=== PATIENT | male | born 1955 | race Caucasian/White ===

== ENCOUNTER 2016-05-16 08:30 | Inpatient (IN) | payer BC ==
[~2016-05-16] VITALS: Ht 180.3 cm; Wt 83.7 kg
[2016-05-16] VITALS (9 sets, daily range): BP systolic 104–138; BP diastolic 76–94; PULSE 54–93; TEMP 97.7–98.4
[~2016-05-16 08:30] MED LIST: ALEVE 220MG220 MG PO; ATIVAN 0.50.5 MG/TAB PO; CARDIZEM CD 18180 MG PO; COUMADIN 2MG2 MG/TAB PO; LIPITOR20 MG PO; MAGNESIUM CHELA27 MG PO; MAGNESIUM200 MG PO; NAPROSYN 2250 MG/TAB PO; NAPROSYN500 MG PO; NORCO 325 MG-51 TAB PO; OMEGA-31 SGL PO; PROTONIX 40MG T40 MG PO; SELENIUM PO; SELENIUM2 PO; TOPROL XL 25MG25 MG PO; TYLENOL 325MG325 MG PO; ZANTAC 7575 MG PO; ZESTRIL 20MG TA20 MG PO; ZESTRIL2.5 MG PO; ZOFRAN ODT4 MG PO
[2016-05-16 09:14] LABS: HEMATOCRIT 47.6 % (42.0-52.0); HEMOGLOBIN 15.7 g/dl (13.5-18.0); MEAN CELL VOLUME 90 fl (80.0-100.0); MEAN CORPUSCULAR HEMOGLOBIN 30 pg (27.0-31.0); MEAN CORPUSCULAR HGB CONC 33 g/dl (33.0-37.0); MEAN PLATELET VOLUME 10.5 fl (7.4-10.4); PLATELET COUNT 249 K/mm3 (130-400); RED BLOOD COUNT 5.28 M/mm3 (4.20-5.60); REDCELL DISTRIBUTION WIDTH-CV 14.5 % (11.5-14.5); WHITE BLOOD COUNT 5.3 K/mm3 (4.8-10.8)
[2016-05-16] MEDS ORDERED: COUMADIN 2MG2 MG/TAB PO (09:17)
[2016-05-16] MEDS ORDERED: ZANTAC 7575 MG PO (09:18)
[2016-05-16] MEDS ORDERED: ASPIRIN 81M81 MG/TA2 PO (09:20)
[2016-05-16] MEDS ORDERED: NASAL CROM NAS (09:22)
[2016-05-16] MEDS ORDERED: FINACEA15% TP (09:23)
[2016-05-16] MEDS ORDERED: ULTRAVATE CREAM15 GM TP (09:23)
[2016-05-16 09:24] LABS: INR 2.3 (0.8-3.0); PROTHROMBIN TIME 26.3 SECONDS (9.7-12.8)
[2016-05-16 09:28] LABS: CREATININE, serum 1.03 mg/dL (0.66-1.25); POTASSIUM 4.3 mmol/L (3.4-5.0)
[2016-05-17 03:50] VITALS: BP 123/64; PULSE 55; TEMP 97.8
[2016-05-17 06:59] LABS: HEMATOCRIT 43.9 % (42.0-52.0); HEMOGLOBIN 14.7 g/dl (13.5-18.0); MEAN CELL VOLUME 89 fl (80.0-100.0); MEAN CORPUSCULAR HEMOGLOBIN 30 pg (27.0-31.0); MEAN CORPUSCULAR HGB CONC 34 g/dl (33.0-37.0); MEAN PLATELET VOLUME 10.9 fl (7.4-10.4); PLATELET COUNT 213 K/mm3 (130-400); RED BLOOD COUNT 4.92 M/mm3 (4.20-5.60); REDCELL DISTRIBUTION WIDTH-CV 14.4 % (11.5-14.5); WHITE BLOOD COUNT 5.7 K/mm3 (4.8-10.8)
[2016-05-17 07:19] LABS: INR 2.3 (0.8-3.0); PROTHROMBIN TIME 25.9 SECONDS (9.7-12.8)
[2016-05-17 07:22] LABS: CALCIUM 9.7 mg/dL (8.4-10.2); CREATININE, serum 0.96 mg/dL (0.66-1.25); MAGNESIUM 1.9 mg/dL (1.6-2.3); POTASSIUM 4.2 mmol/L (3.4-5.0)
[2016-05-17 08:23] VITALS: BP 113/74; PULSE 56; TEMP 97.7
[2016-05-17 17:06] VITALS: BP 144/88; PULSE 59; TEMP 97.9
[2016-05-17 19:32] VITALS: BP 127/83; PULSE 59; TEMP 98.1
[2016-05-17 23:46] VITALS: BP 150/89; PULSE 65; TEMP 97.6
[2016-05-18 08:02] VITALS: BP 125/84; PULSE 56; TEMP 98.1
[2016-05-18 08:10] LABS: HEMATOCRIT 44.6 % (42.0-52.0); MEAN CELL VOLUME 90 fl (80.0-100.0); MEAN CORPUSCULAR HEMOGLOBIN 30 pg (27.0-31.0); MEAN CORPUSCULAR HGB CONC 34 g/dl (33.0-37.0); MEAN PLATELET VOLUME 11.1 fl (7.4-10.4); PLATELET COUNT 215 K/mm3 (130-400); RED BLOOD COUNT 4.98 M/mm3 (4.20-5.60); REDCELL DISTRIBUTION WIDTH-CV 14.2 % (11.5-14.5); WHITE BLOOD COUNT 6.1 K/mm3 (4.8-10.8)
[2016-05-18 08:11] LABS: INR 1.9 (0.8-3.0); PROTHROMBIN TIME 21.1 SECONDS (9.7-12.8)
[2016-05-18 08:21] LABS: CALCIUM 9.7 mg/dL (8.4-10.2); CREATININE, serum 1.01 mg/dL (0.66-1.25); POTASSIUM 4.2 mmol/L (3.4-5.0)
[2016-05-18] MEDS ORDERED: ZESTRIL 10MG10 MG PO (11:16)
[2016-05-18] MEDS ORDERED: COUMADIN 6MG6 MG/TAB PO (11:21)
[2016-05-18] MEDS ORDERED: BETAPACE 80MG80 MG PO (11:32)
== END 2016-05-18 11:55 | disposition home or self-care (01) | DRG 310 ==
LOC: EUO 08:30 → MEDICAL 11:13 → EUO 11:14 → MEDICAL 11:14
PROVIDERS: Internal Medicine Cardiovascular Disease
PROC: 5A2204Z Restoration of Cardiac Rhythm, Single (ICD-10-PCS; principal; 2016-05-16)
DX: I48.0 Paroxysmal atrial fibrillation (principal); I10 Essential (primary) hypertension; I42.9 Cardiomyopathy, unspecified; Z86.73 Personal history of transient ischemic attack (TIA), and cerebral infarction without residual deficits
CPT/HCPCS: J2704

== ENCOUNTER → 2016-06-29 | Outpatient (RCR) | payer BC ==
[~2016-06-29] MED LIST changes: +ASPIRIN 81M81 MG/TA2 PO; +BETAPACE 80MG80 MG PO; +COUMADIN 6MG6 MG/TAB PO; +FINACEA15% TP; +NASAL CROM NAS; +ULTRAVATE CREAM15 GM TP; +ZESTRIL 10MG10 MG PO
== END | disposition still patient (30) ==
LOC: MKS.ESL.OT → WSST 04-05 14:15 → MKS.ESL.PT 04-06 09:00 → WSST 04-07 13:45 → MKS.ESL.OT 04-08 14:30 → WSST 04-12 13:30 → MKS.ESL.OT 04-22 13:45 → WSST 04-25 14:15 → MKS.ESL.OT 04-26 13:00 → WSST 04-28 12:30 → MKS.ESL.OT 05-05 13:45 → WSST 05-10 12:30 → MKS.ESL.OT 05-11 13:15 → WSST 05-12 12:30 → MKS.ESL.OT 05-20 14:00 → WSST 05-24 13:45 → MKS.ESL.OT 06-01 13:00 → WSST 06-02 12:45 → MKS.ESL.OT 06-15 13:00
DX: R53.1 Weakness (principal)

== ENCOUNTER → 2016-09-28 | Outpatient (RCR) | payer BC | END | disposition still patient (30) | LOC: MKS.ESL.PT → MKS.ESL.OT 06-30 12:47 → WSST 07-13 13:00 → MKS.ESL.OT 07-14 13:00 → WSST 07-27 13:00 → MKS.ESL.OT 08-02 13:00 → WSST 08-03 13:00 → MKS.ESL.OT 08-09 13:00 → WSST 08-11 13:00 → MKS.ESL.PT 08-23 12:30 → MKS.ESL.OT 08-24 13:00 → MKS.ESL.PT 08-25 13:15 → MKS.ESL.OT 08-31 13:00 → WSST 09-01 14:30 → MKS.ESL.OT 09-07 13:15 → MKS.ESL.PT 09-13 12:30 → WSST 09-19 14:15 → MKS.ESL.PT 09-20 12:30 → MKS.ESL.OT 13:00 | DX: I63.8 Other cerebral infarction (principal) ==

== ENCOUNTER 2016-12-28 12:30 | Outpatient (RCR) | payer BC | END 2017-01-01 | disposition home or self-care (01) | LOC: WSST | DX: I69.351 Hemiplegia and hemiparesis following cerebral infarction affecting right dominant side (principal) ==

== ENCOUNTER 2017-03-29 07:36 | Day surgery (SDC) | payer BC ==
[~2017-03-29] VITALS: Ht 180.3 cm; Wt 80.9 kg
[2017-03-29 08:05] VITALS: BP 153/91; PULSE 59; TEMP 97.4
[2017-03-29] MEDS ORDERED: COUMADIN 2MG2 MG/TAB PO (08:29)
[2017-03-29] MEDS ORDERED: ATIVAN 0.50.5 MG/TAB PO (08:34)
[2017-03-29] MEDS ORDERED: REVATIO20 MG PO (08:35)
[2017-03-29] MEDS ORDERED: LIPITOR 40MG TA40 MG PO (08:35)
[2017-03-29] MEDS ORDERED: CELEBREX 200MG200 MG PO (08:36)
[2017-03-29] MEDS ORDERED: CROMOLYN SODIUM NS (08:38)
[2017-03-29] MEDS ORDERED: NORCO 325 MG-51 TAB PO (08:39)
[2017-03-29 11:30] VITALS: BP 143/83; PULSE 58; TEMP 97.6
[2017-03-29 11:45] VITALS: BP 164/86; PULSE 60
[2017-03-29 12:00] VITALS: BP 141/72; PULSE 57
[2017-03-29 12:15] VITALS: BP 134/80; PULSE 60
[2017-03-29 12:58] VITALS: BP 141/85; PULSE 56; TEMP 97.6
== END 2017-03-29 13:18 | disposition home or self-care (01) ==
LOC: SDCO 07:36
DX: S80.12XA Contusion of left lower leg, initial encounter (principal); T79.8XXA Other early complications of trauma, initial encounter; I96 Gangrene, not elsewhere classified; E78.00 Pure hypercholesterolemia, unspecified; G47.30 Sleep apnea, unspecified; I48.91 Unspecified atrial fibrillation; I11.0 Hypertensive heart disease with heart failure; I50.9 Heart failure, unspecified; I65.29 Occlusion and stenosis of unspecified carotid artery; I25.10 Atherosclerotic heart disease of native coronary artery without angina pectoris; Z87.891 Personal history of nicotine dependence; R12 Heartburn; Z79.01 Long term (current) use of anticoagulants; I69.931 Monoplegia of upper limb following unspecified cerebrovascular disease affecting right dominant side; I69.920 Aphasia following unspecified cerebrovascular disease; W19.XXXA Unspecified fall, initial encounter
CPT/HCPCS: J0690; J1100; J2270; J2405; J2704; J3010; J7120

== ENCOUNTER 2017-03-30 14:00 | Outpatient (RCR) | payer BC ==
[~2017-03-30 14:00] MED LIST changes: +CELEBREX 200MG200 MG PO; +CROMOLYN SODIUM NS; +LIPITOR 40MG TA40 MG PO; +REVATIO20 MG PO
== END 2017-04-03 | disposition still patient (30) ==
LOC: MKS.ESL.OT
DX: I69.351 Hemiplegia and hemiparesis following cerebral infarction affecting right dominant side (principal)

== ENCOUNTER → 2017-04-07 | Outpatient (CLI) | payer BC | LOC: ZCOL.LAB 17:29 | DX: S81.802A Unspecified open wound, left lower leg, initial encounter (principal) ==

== ENCOUNTER 2017-06-27 13:00 | Outpatient (RCR) | payer BC | END 2017-07-03 | disposition home or self-care (01) | LOC: WSST | DX: I69.320 Aphasia following cerebral infarction (principal); I69.391 Dysphagia following cerebral infarction; R13.10 Dysphagia, unspecified ==

== ENCOUNTER 2017-10-06 13:00 | Outpatient (RCR) | payer BC | END 2017-10-09 | disposition home or self-care (01) | LOC: MKS.ESL.OT | DX: I69.951 Hemiplegia and hemiparesis following unspecified cerebrovascular disease affecting right dominant side (principal) ==

== ENCOUNTER 2017-11-02 13:00 | Outpatient (RCR) | payer BC | END 2017-11-03 16:39 | disposition home or self-care (01) | LOC: MKS.ESL.OT 13:00 | DX: I69.351 Hemiplegia and hemiparesis following cerebral infarction affecting right dominant side (principal) ==

== ENCOUNTER 2018-01-14 12:07 | Emergency (ER) | payer BC ==
[~2018-01-14] VITALS: Ht 180.3 cm; Wt 82.7 kg
[2018-01-14 12:14] VITALS: TEMP 98.5
[2018-01-14 12:40] LABS: BASO # 0.1 (0.0-0.2); EOS # 0.4 (0.0-0.7); EOS % 4.1 % (0-4.0); GRAN # 6.2 (1.4-6.5); GRAN % 69.7 % (42.2-75.2); HEMATOCRIT 45.9 % (42.0-52.0); HEMOGLOBIN 15.5 g/dl (13.5-18.0); LYMPH # 1.6 (1.2-3.4); LYMPH % 18.1 % (20.0-51.0); MEAN CELL VOLUME 94 fl (80.0-100.0); MEAN CORPUSCULAR HEMOGLOBIN 32 pg (27.0-31.0); MEAN CORPUSCULAR HGB CONC 34 g/dl (33.0-37.0); MEAN PLATELET VOLUME 10.4 fl (7.4-10.4); MONO # 0.6 (0.1-0.6); MONO % 6.9 % (1.7-9.3); PLATELET COUNT 235 K/mm3 (130-400); RED BLOOD COUNT 4.87 M/mm3 (4.20-5.60); REDCELL DISTRIBUTION WIDTH-CV 14.1 % (11.5-14.5)
[2018-01-14 12:46] LABS: INR 2.7 (0.8-3.0); PROTHROMBIN TIME 30.3 SECONDS (9.7-12.8)
[2018-01-14 12:48] LABS: PARTIAL THROMBOPLASTIN TIME 47.6 SECONDS (26.0-37.0)
[2018-01-14 12:49] LABS: ALANINE AMINOTRANSFERASE 67 U/L (21-72); ALBUMIN 4.6 gm/dL (3.5-5.0); ALKALINE PHOSPHATASE 76 U/L (50-136); ANION GAP 9 mmol/L (7-16); AST,SGOT 69 U/L (15-37); BILIRUBIN,TOTAL 1.1 mg/dL (0.0-1.0); BLOOD UREA NITROGEN 9 mg/dL (9-20); CALCIUM 9.4 mg/dL (8.4-10.2); CARBON DIOXIDE 29 mmol/L (22-30); CHLORIDE 93 mmol/L (98-107); CREATININE, serum 0.99 mg/dL (0.66-1.25); GLUCOSE 95 mg/dL (74-106); LIPASE 90 U/L (23-300); POTASSIUM 5.1 mmol/L (3.4-5.0); SODIUM 131 mmol/L (137-145); TOTAL PROTEIN 7.9 gm/dL (6.4-8.2)
[2018-01-14] MEDS ORDERED: EPA FISH OIL1 SGL PO (13:00)
[2018-01-14] MEDS ORDERED: PROZAC 10MG10 MG PO (13:01)
[2018-01-14] MEDS ORDERED: ZYRTEC 10MG10 MG PO (13:01)
[2018-01-14] MEDS ORDERED: ATIVAN 0.50.5 MG/TAB PO (13:02)
[2018-01-14] MEDS ORDERED: ULTRAVATE CREAM15 GM TP (13:02)
[2018-01-14] MEDS ORDERED: NIZORAL CREAM15 GM TP (13:03)
[2018-01-14 13:07] LABS: TROPONIN-I < 0.012 ng/mL (0.000-0.034)
[2018-01-14 13:46] VITALS: BP 169/118; PULSE 52
== END 2018-01-14 14:00 | disposition short-term general hospital (02) ==
LOC: COL.ER 12:07
PROVIDERS: Emergency Medicine
DX: I21.3 ST elevation (STEMI) myocardial infarction of unspecified site (principal); I10 Essential (primary) hypertension; I48.91 Unspecified atrial fibrillation; Z86.73 Personal history of transient ischemic attack (TIA), and cerebral infarction without residual deficits; Z79.01 Long term (current) use of anticoagulants; Z79.82 Long term (current) use of aspirin

== ENCOUNTER 2018-03-21 14:36 | Outpatient (RCR) | payer BC ==
[~2018-03-21 14:36] MED LIST changes: +EPA FISH OIL1 SGL PO; +NIZORAL CREAM15 GM TP; +PROZAC 10MG10 MG PO; +ZYRTEC 10MG10 MG PO
== END 2018-03-23 05:44 | disposition home or self-care (01) ==
LOC: COL.CR 14:36
DX: I21.9 Acute myocardial infarction, unspecified (principal)

== ENCOUNTER → 2018-03-27 | Outpatient (RCR) | payer BC | END | disposition home or self-care (01) | LOC: MKS.ESL.OT | DX: I69.351 Hemiplegia and hemiparesis following cerebral infarction affecting right dominant side (principal) ==

== ENCOUNTER 2018-06-18 14:46 | Outpatient (RCR) | payer SELFPAY | END 2018-06-21 | disposition home or self-care (01) | LOC: COL.CR | DX: Z02.89 Encounter for other administrative examinations (principal) ==

== ENCOUNTER 2018-06-19 12:45 | Outpatient (RCR) | payer BC | END 2018-06-27 | disposition home or self-care (01) | LOC: MKS.ESL.OT | DX: I69.351 Hemiplegia and hemiparesis following cerebral infarction affecting right dominant side (principal) ==

== ENCOUNTER 2018-09-07 13:00 | Outpatient (RCR) | payer BC | END 2018-09-12 13:58 | disposition home or self-care (01) | LOC: MKS.ESL.OT 13:00 | DX: I69.351 Hemiplegia and hemiparesis following cerebral infarction affecting right dominant side (principal); E78.5 Hyperlipidemia, unspecified; I48.91 Unspecified atrial fibrillation; F41.9 Anxiety disorder, unspecified ==

== ENCOUNTER 2018-09-26 11:52 | Outpatient (RCR) | payer SELFPAY | END 2018-09-30 | disposition home or self-care (01) | LOC: COL.CR | DX: Z02.89 Encounter for other administrative examinations (principal) ==

== ENCOUNTER 2018-12-28 14:51 | Outpatient (RCR) | payer SELFPAY | END 2019-01-01 | disposition home or self-care (01) | LOC: COL.CR | DX: Z02.89 Encounter for other administrative examinations (principal) ==

== ENCOUNTER 2019-03-29 12:31 | Outpatient (RCR) | payer SELFPAY | END 2019-04-02 | disposition home or self-care (01) | LOC: COL.CR | DX: Z02.89 Encounter for other administrative examinations (principal) ==

== ENCOUNTER 2019-06-17 15:47 | Outpatient (RCR) | payer SELFPAY | END 2019-06-30 | disposition home or self-care (01) | LOC: COL.CR | DX: Z02.89 Encounter for other administrative examinations (principal) ==

== ENCOUNTER 2019-08-09 07:52 | Day surgery (SDC) | payer BC ==
[~2019-08-09] VITALS: Ht 180.3 cm; Wt 84.6 kg
[~2019-08-09 07:52] MED LIST changes: -LIPITOR 40MG TA40 MG PO; +LIPITOR 80MG80 MG PO; -ZESTRIL 10MG10 MG PO; +ZESTRIL 5MG5 MG PO
[2019-08-09] MEDS ORDERED: WELLBUTRIN XL150 MG PO (08:21)
[2019-08-09] MEDS ORDERED: FINACEA15% TP (08:25)
[2019-08-09] MEDS ORDERED: PEPCID 20MG TAB20 MG PO (08:26)
[2019-08-09] MEDS ORDERED: TRICOR 48MG48 MG PO (08:27)
[2019-08-09] MEDS ORDERED: NITROSTAT0.4 MG/TAB SL (08:30)
[2019-08-09 08:41] VITALS: BP 157/141; BP 167/56; PULSE 133; TEMP 97.7
[2019-08-09 09:09] LABS: HEMATOCRIT 48.2 % (42.0-52.0); HEMOGLOBIN 15.7 g/dl (13.5-18.0); MEAN CELL VOLUME 95 fl (80.0-100.0); MEAN CORPUSCULAR HEMOGLOBIN 31 pg (27.0-31.0); MEAN CORPUSCULAR HGB CONC 33 g/dl (33.0-37.0); MEAN PLATELET VOLUME 10.3 fl (7.4-10.4); PLATELET COUNT 240 K/mm3 (130-400); REDCELL DISTRIBUTION WIDTH-CV 14.2 % (11.5-14.5)
[2019-08-09 09:22] LABS: CREATININE, serum 1.17 (0.66-1.25); MAGNESIUM 1.9 mg/dL (1.6-2.3); POTASSIUM 4.5 mmol/L (3.4-5.0)
[2019-08-09 09:51] LABS: INR 2.9 (0.8-3.0); PROTHROMBIN TIME 34.7 SECONDS (9.7-12.8)
[2019-08-09 09:53] LABS: PARTIAL THROMBOPLASTIN TIME 46.7 SECONDS (26.0-37.0); THYROID STIMULATING HORMONE 3.66 uIU/mL (0.465-4.680)
[2019-08-09 10:45] VITALS: BP 103/79; PULSE 50
--- NOTE | 2019-08-09 10:45 | NUR ---
PT back from buster/cardioversion, bs report from Ameena CHOW. Pt is awake and alert, NSR/sinus alyssia on monitor, no complaints wctm.
[2019-08-09 11:00] VITALS: BP 110/76; PULSE 53
[2019-08-09 11:15] VITALS: BP 147/103; PULSE 53
[2019-08-09 11:30] VITALS: BP 124/85; PULSE 53
[2019-08-09 12:19] VITALS: BP 152/95; PULSE 53; TEMP 97.6
--- NOTE | 2019-08-09 12:30 | NUR ---
Pt ready for discharge, he has had repeat EKG, has remained in sinus rhythm. pt has been ambulatory with steady gait and has been able to drink with no trouble swallowing. pt is without complaints, he is dressed and ready to depart. I informed pt's after consulting with Aura CHOW that pt should continue wearing the ekg monitor tech at home as prescribed. IV dc'd with cath intact, dressing applied. pt escorted to exit via wheelchair.
== END 2019-08-09 13:49 | disposition home or self-care (01) ==
LOC: COL.CAR 07:52
PROVIDERS: Internal Medicine Cardiovascular Disease
DX: I48.0 Paroxysmal atrial fibrillation (principal); I11.0 Hypertensive heart disease with heart failure; I50.9 Heart failure, unspecified; E78.5 Hyperlipidemia, unspecified; G47.33 Obstructive sleep apnea (adult) (pediatric); I25.10 Atherosclerotic heart disease of native coronary artery without angina pectoris; I65.29 Occlusion and stenosis of unspecified carotid artery; I07.1 Rheumatic tricuspid insufficiency; I25.2 Old myocardial infarction; K21.9 Gastro-esophageal reflux disease without esophagitis; F41.9 Anxiety disorder, unspecified; Z86.73 Personal history of transient ischemic attack (TIA), and cerebral infarction without residual deficits; Z79.82 Long term (current) use of aspirin; Z79.01 Long term (current) use of anticoagulants
CPT/HCPCS: J2704

== ENCOUNTER 2019-11-15 15:03 | Outpatient (RCR) | payer SELFPAY ==
[~2019-11-15 15:03] MED LIST changes: +NITROSTAT0.4 MG/TAB SL; +PEPCID 20MG TAB20 MG PO; +TRICOR 48MG48 MG PO; +WELLBUTRIN XL150 MG PO
== END 2019-12-12 | disposition home or self-care (01) ==
LOC: COL.CR
DX: Z02.89 Encounter for other administrative examinations (principal)

== ENCOUNTER 2020-03-11 15:15 | Outpatient (RCR) | payer SELFPAY | END 2020-03-15 | disposition home or self-care (01) | LOC: COL.CR | DX: Z02.89 Encounter for other administrative examinations (principal) ==

== ENCOUNTER 2020-06-12 14:48 | Outpatient (RCR) | payer SELFPAY | END 2020-06-14 | disposition home or self-care (01) | LOC: COL.CR | DX: Z02.89 Encounter for other administrative examinations (principal) ==

== ENCOUNTER 2020-09-11 17:05 | Outpatient (RCR) | payer SELFPAY | END 2020-09-13 | disposition home or self-care (01) | LOC: COL.CR | DX: Z02.89 Encounter for other administrative examinations (principal) ==

== ENCOUNTER 2020-10-12 15:47 | Emergency (ER) | payer MEDICARE, BC ==
[~2020-10-12] VITALS: Ht 180.3 cm; Wt 84.1 kg
[2020-10-12 18:15] LABS: BASO # 0.1 (0.0-0.2); BASO % 0.9 % (0.0-2.0); EOS # 0.4 (0.0-0.7); EOS % 3.7 % (0-4.0); GRAN # 5.7 (1.4-6.5); GRAN % 60.4 % (42.2-75.2); HEMATOCRIT 48.7 % (42.0-52.0); HEMOGLOBIN 15.9 g/dl (13.5-18.0); LYMPH # 2.1 (1.2-3.4); LYMPH % 22.3 % (20.0-51.0); MEAN CELL VOLUME 94 fl (80.0-100.0); MEAN CORPUSCULAR HEMOGLOBIN 31 pg (27.0-31.0); MEAN CORPUSCULAR HGB CONC 33 g/dl (33.0-37.0); MEAN PLATELET VOLUME 10.7 fl (7.4-10.4); MONO # 1.2 (0.1-0.6); MONO % 12.3 % (1.7-9.3); PLATELET COUNT 329 K/mm3 (130-400); RED BLOOD COUNT 5.16 M/mm3 (4.20-5.60); REDCELL DISTRIBUTION WIDTH-CV 14.5 % (11.5-14.5)
[2020-10-12 18:26] LABS: INR 1.3 (0.8-3.0); PROTHROMBIN TIME 14.8 SECONDS (9.7-12.8)
[2020-10-12 18:58] VITALS: BP 141/104; PULSE 54; TEMP 98.6
== END 2020-10-12 18:58 | disposition home or self-care (01) ==
LOC: COL.ER 15:47
PROVIDERS: Family Medicine
DX: M79.605 Pain in left leg (principal); I48.20 Chronic atrial fibrillation, unspecified; Z86.73 Personal history of transient ischemic attack (TIA), and cerebral infarction without residual deficits; Z79.01 Long term (current) use of anticoagulants; Z79.82 Long term (current) use of aspirin

== ENCOUNTER → 2020-10-13 | Outpatient (CLI) | payer MEDICARE, BC ==
[~2020-10-13] MED LIST changes: +BETAPACE 120MG120 MG PO; +ELIQUIS 5MG PO; +FLONASEALLERGY NS; +NORVASC 10MG10 MG PO; +SYNTHROID0.088 MG/T PO
== END ==
LOC: COL.VAS 07:45
DX: I74.3 Embolism and thrombosis of arteries of the lower extremities (principal)

== ENCOUNTER 2020-11-19 12:27 | Inpatient (IN) | payer MEDICARE, BC ==
[~2020-11-19] VITALS: Ht 180.3 cm; Wt 81.9 kg
[~2020-11-19 12:27] MED LIST changes: -BETAPACE 120MG120 MG PO; -ELIQUIS 5MG PO; -FLONASEALLERGY NS; -NORVASC 10MG10 MG PO; -SYNTHROID0.088 MG/T PO
--- NOTE | 2020-11-19 13:15 | NUR ---
Pt arrived to room 348, hospitalist notified, no new orders at this time.
[2020-11-19 16:10] VITALS: BP 163/101; PULSE 60; TEMP 98.2
[2020-11-19 16:43] LABS: MEAN CELL VOLUME 93 fl (80.0-100.0); MEAN CORPUSCULAR HGB CONC 34 g/dl (33.0-37.0); PLATELET COUNT 685 K/mm3 (130-400); REDCELL DISTRIBUTION WIDTH-CV 13.7 % (11.5-14.5)
[2020-11-19] MEDS ORDERED: SYNTHROID0.088 MG/T PO (16:44)
[2020-11-19] MEDS ORDERED: FLONASEALLERGY NS (16:44)
[2020-11-19 16:48] LABS: HEMATOCRIT 23.3 % (42.0-52.0); HEMOGLOBIN 7.8 g/dl (13.5-18.0); MEAN CORPUSCULAR HEMOGLOBIN 31 pg (27.0-31.0)
[2020-11-19 16:54] LABS: ALBUMIN 4.2 gm/dL (3.5-5.0); BILIRUBIN,TOTAL 1.3 mg/dL (0.0-1.0); CALCIUM 9.7 mg/dL (8.4-10.2); CREATININE, serum 1.85 (0.66-1.25); MAGNESIUM 1.5 mg/dL (1.6-2.3); POTASSIUM 4.6 mmol/L (3.4-5.0); PROTHROMBIN TIME 33.1 SECONDS (9.7-12.8); TOTAL PROTEIN 7.6 gm/dL (6.4-8.2)
--- NOTE | 2020-11-19 17:02 | NUR ---
Pt assessment, VS and admission completed. Pt A&O, on room air on arrival to room, no O2 required at baseline. Pt satting 88% on room air, placed on 2L NC at this time. Pt has RAC IV started w/ NS @ 100ml/hr running w/o issues. Pt c/o pain to LLQ, rating it 8/10, received PRN [place] per mar w/ no relief, second tab given. Pt denies dizziness, N/V/D, chest pain, SOB. Labs drawn and critical called of WBC 35.5, called to hospitalist, no new orders at this time. 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 No difficulty w/ swallowing. No further needs expressed at this time.
[2020-11-19 17:28] LABS: COLLECTION METHOD CLEAN CATCH
[2020-11-19 17:39] LABS: MUCOUS Present /lpf; PH 5 (5-8); SQUAMOUS EPITHELIAL 0-2 /hpf; URINE APPEARANCE Hazy; URINE BACTERIA None Seen /hpf; URINE BILIRUBIN Negative (NEGATIVE); URINE BLOOD 3+ (NEGATIVE); URINE COLOR Yellow; URINE GLUCOSE 2+ (NEGATIVE); URINE KETONE Trace (NEGATIVE); URINE LEUKOCYTE ESTERASE Negative (NEGATIVE); URINE NITRATE Negative (NEGATIVE); URINE PROTEIN(semi-quant) 2+ (NEGATIVE); URINE UROBILINOGEN Negative (NEGATIVE); URINE WBC 0-2 /hpf
[2020-11-19 17:50] LABS: BAND 7 % (0-10); EOSINOPHIL 1 % (0-4); HYPOCHROMIA 1+; LYMPHOCYTE 4 % (20.0-51.0); NEUTROPHILS 86 % (42.0-75.2); PLATELET ESTIMATE INCREASED (NORMAL)
[2020-11-19 20:22] LABS: HEMOGLOBIN 13.6 g/dl (13.5-18.0)
[2020-11-19 20:33] VITALS: BP 160/97; PULSE 58; TEMP 98.2
--- NOTE | 2020-11-19 21:00 | NUR ---
LABS REPORTED TO [facility].
--- NOTE | 2020-11-19 21:11 | NUR ---
PT COMPLAINS OF LLQ PAIN, MEDICATED WITH NORCO 1 TAB PO AT THIS TIME. TAKES OTHER HS MEDS WELL. PT IS ALERT AND ORIENTED. SPEECH DELAY SECONDARY TO OLD CVA HAS RT SIDE WEAKNESS. AUDIBLE CRACKLES NOTED. IVF TO RIGHT AC INFUSING WITHOUT PROBLEM.
--- NOTE | 2020-11-19 22:15 | NUR ---
IVF STOPPED. RESP VIRUS SWAB OBTAINED. URINE COLLECTED ORDERED.
--- NOTE | 2020-11-19 22:30 | NUR ---
LASIX 40MG IVP GIVEN. IV ZOSYN INFUSING WITHOUT PROBLEM TO RT AC.
[2020-11-20] VITALS (7 sets, daily range): BP systolic 79–120; BP diastolic 54–69; PULSE 42–86; TEMP 97.5–98.4
--- NOTE | 2020-11-20 06:00 | NUR ---
PT IN BED. SCHEDULED AM MEDS GIVEN. DENIES NEED FOR PAIN MEDS THIS AM. ZOSYN CONNECTED AND INFUSING WITHOUT PROBLEM TO RT AC.
[2020-11-20 07:01] LABS: BASO # 0.1 (0.0-0.2); BASO % 0.3 % (0.0-2.0); EOS # 0.2 (0.0-0.7); EOS % 1.6 % (0-4.0); GRAN % 81.4 % (42.2-75.2); HEMOGLOBIN 12.3 g/dl (13.5-18.0); LYMPH # 1.2 (1.2-3.4); LYMPH % 8.3 % (20.0-51.0); MEAN CELL VOLUME 89 fl (80.0-100.0); MEAN CORPUSCULAR HEMOGLOBIN 30 pg (27.0-31.0); MEAN CORPUSCULAR HGB CONC 34 g/dl (33.0-37.0); MEAN PLATELET VOLUME 11.1 fl (7.4-10.4); MONO # 1.2 (0.1-0.6); MONO % 7.8 % (1.7-9.3); RED BLOOD COUNT 4.07 M/mm3 (4.20-5.60); REDCELL DISTRIBUTION WIDTH-CV 13.6 % (11.5-14.5)
[2020-11-20 07:07] LABS: HEMATOCRIT 36.1 % (42.0-52.0); PLATELET COUNT 383 K/mm3 (130-400)
[2020-11-20 07:18] LABS: ALBUMIN 3.3 gm/dL (3.5-5.0); CALCIUM 8.8 mg/dL (8.4-10.2); CREATININE, serum 2.09 (0.66-1.25); PHOSPHOROUS 3.2 mg/dL (2.5-4.5); POTASSIUM 3.8 mmol/L (3.4-5.0)
[2020-11-20 07:36] LABS: INR 4.1 (0.8-3.0)
[2020-11-20 08:01] LABS: PROTHROMBIN TIME 45.9 SECONDS (9.7-12.8)
--- NOTE | 2020-11-20 08:45 | NUR ---
PATIENT ALERT AND ORIENTED X4. UP IN BED. AT BEDSIDE. PATIENT HAS RIGHT AC IV INT. SODIUM IS 121. PATIENT GIVEN TYLENOL PER ORDERS FOR PAIN. PATIENT URINE IS YELLOW AND CLEAR. PATIENT ORDERED BREAKFAST AND ON NO FREE WATER. HEAD TO TOE ASSESSMENT COMPLETE. NO FURTHER NEEDS AT THIS TIME. CALL LIGHT WITHIN REACH.
--- NOTE | 2020-11-20 10:52 | NUR ---
Initial visit; Patient thanked Brim Ironer Hand for looking in on him and offering prayer for pain.
--- NOTE | 2020-11-20 11:15 | NUR ---
TELE CALLED AND REPORTED A QT INTERV. OF 0.66, HOSPITALIST NOTIFIED.
--- NOTE | 2020-11-20 14:16 | NUR ---
amusement park worker met with patient and spouse to discuss discharge planning. Patient plans to return home where he resides with his . Both state they are independent with activities of daily living and deny any unmet needs. Patient's primary care provider is Dr Jones and denies difficulty obtaining his prescriptions. states that she will bring in a copy of patient's advance directives tomorrow.
--- NOTE | 2020-11-20 14:24 | NUR ---
PATIENT AWAKE IN BED. AT BEDSIDE. PATIENT DENIES PAIN AT THIS TIME. NO FURTHER NEEDS. CALL LIGHT WITHIN REACH.
--- NOTE | 2020-11-20 19:30 | NUR ---
Report received, assumed care for shift supervisor film processing. Assessment complete. A&Ox3. Denies pain/nausea/shortness of breath. Tele showing SB. Family at bedside with questions about coumadin and lab results. DId discuss INR results and reason for holding coumadin. Plan of care discussed for this shift to include HS meds/antibiotics/monitoring on tele/VS/calling for questions/concerns. Verbalizes understanding. Reminded of free water restriction. INT to right AC flushes without difficulty. Noted to have weakness to right extremities from old CVA. Slight slurred speech. Denies current needs call light in reach. Will monitor.
--- NOTE | 2020-11-20 20:00 | NUR ---
Hospitalist FLAKITA Hare notified of blood pressure 70s/50s-verified manually by this nurse. New orders received, and initiated.
--- NOTE | 2020-11-20 22:00 | NUR ---
continued to be at bedside after visiting hours. This nurse explained that visiting hours were over at 1999 and that she would have to leave for the night. became upset stating "im not leaving, I am concerned his blood pressure is so slow and no one seems to care." Also states "I have had my in this hospital several times and he has always been on a continuous blood pressure monitor, why is he not now?" This nurse sat with patient/ and explained that we were monitoring his heart with tele and I am taking his blood pressure often. This nurse explained that when patient was noted to have hypotension eariler I had notified the hospitalist and we started IV fluids right away-which we discussed when I initiated the fluids. I also explained that it takes some time for the fluid to work and that I would be rechecking his blood pressure now to see if it had improved. It had. Also discussed monitoring and vitals being ordered q4h and that they were being done every 1.5-2 now. still irritated but did leave after the discussion.
[2020-11-21] VITALS (7 sets, daily range): BP systolic 104–142; BP diastolic 62–91; PULSE 53–106; TEMP 97–98.7
--- NOTE | 2020-11-21 01:03 | NUR ---
Notified by tele of converting back into A fib. VS taken and WNL. Asymptomatic. Hospitalist FLAKITA Hare notified with no new orders. Will monitor.
--- NOTE | 2020-11-21 05:06 | NUR ---
Did not rest well this shift. Has been upset with staff for waking him multiple times for VS and medications. This nurse tried to explain that we needed to monitor VS due to hypotension/Afib and that medications are due throughout the night. Still upset with plan of care and unable to reason with patient.
[2020-11-21 07:33] LABS: HEMATOCRIT 39.9 % (42.0-52.0); HEMOGLOBIN 13.5 g/dl (13.5-18.0); MEAN CELL VOLUME 90 fl (80.0-100.0); MEAN CORPUSCULAR HEMOGLOBIN 30 pg (27.0-31.0); MEAN CORPUSCULAR HGB CONC 34 g/dl (33.0-37.0); MEAN PLATELET VOLUME 10.6 fl (7.4-10.4); PLATELET COUNT 404 K/mm3 (130-400); RED BLOOD COUNT 4.46 M/mm3 (4.20-5.60); REDCELL DISTRIBUTION WIDTH-CV 13.9 % (11.5-14.5)
[2020-11-21 07:36] LABS: CALCIUM 8.6 mg/dL (8.4-10.2); CREATININE, serum 2.26 (0.66-1.25); POTASSIUM 4.1 mmol/L (3.4-5.0)
[2020-11-21 09:23] LABS: INR 2.1 (0.8-3.0); PROTHROMBIN TIME 23.2 SECONDS (9.7-12.8)
--- NOTE | 2020-11-21 18:30 | NUR ---
Patient has been doing well today. Offered to get him up a few times today to the chair, he stated his was sitting there. He also stated he thought he was too weak. He has been having pain off and on throughout the day to his mid to left abdomen. Denies nausea. He has been using the urinal throughout the shift. He asked for a stool softner or a gentle laxative. We got him one ordered and given, he than stated it caused cramps. Encouraged him to try walking and see if it would help with the cramps. He has been at bedside since mid-morning. No other changes at this time. Call light within reach.
[2020-11-22] VITALS (7 sets, daily range): BP systolic 102–144; BP diastolic 68–95; PULSE 56–110; TEMP 97.7–99.2
--- NOTE | 2020-11-22 04:06 | NUR ---
This nurse took over care for patient around 2229. Patient has denied having pain and discomfort. Voices no questions, needs, or concerns at this time. Resting in bed with call light within reach.
[2020-11-22 09:11] LABS: BASO # 0.1 (0.0-0.2); BASO % 0.9 % (0.0-2.0); EOS # 1.2 (0.0-0.7); EOS % 10.2 % (0-4.0); GRAN # 7.6 (1.4-6.5); GRAN % 65.8 % (42.2-75.2); LYMPH # 1.3 (1.2-3.4); MEAN CELL VOLUME 92 fl (80.0-100.0); MEAN CORPUSCULAR HEMOGLOBIN 30 pg (27.0-31.0); MEAN CORPUSCULAR HGB CONC 33 g/dl (33.0-37.0); MEAN PLATELET VOLUME 11.1 fl (7.4-10.4); MONO # 1.4 (0.1-0.6); MONO % 11.7 % (1.7-9.3); PLATELET COUNT 442 K/mm3 (130-400); RED BLOOD COUNT 3.97 M/mm3 (4.20-5.60); REDCELL DISTRIBUTION WIDTH-CV 14.1 % (11.5-14.5)
[2020-11-22 09:18] LABS: HEMATOCRIT 36.5 % (42.0-52.0)
[2020-11-22 09:23] LABS: CALCIUM 8.1 mg/dL (8.4-10.2); CREATININE, serum 1.7 (0.66-1.25); POTASSIUM 3.9 mmol/L (3.4-5.0)
[2020-11-22 09:29] LABS: INR 1.8 (0.8-3.0); PROTHROMBIN TIME 20.3 SECONDS (9.7-12.8)
--- NOTE | 2020-11-22 14:30 | NUR ---
Patients heart is down to low 40's. Notified Dr Watson, she changed the cardizem dose back to 120 for tonight. She said to just watch the heart rate today and it should come back up. No other changes at this time. Call light within reach.
--- NOTE | 2020-11-22 18:30 | NUR ---
Patient has been doing well this morning. Minimal complaints of pain today. Tylenol given once. No complaints of nausea. He has been up moving around more in the room. His has been at the bedside most the day. He knows he can not eat or drink after midnight. He did get up and walk in the hallways once. No other changes at this time. Call light within reach.
--- NOTE | 2020-11-22 21:30 | NUR ---
PATIENT IS CALM IN BED.DUE MEDS GIVEN,ASSESSMENT DONE.PATIENT DENIES PAIN.SAFETY MEASURES IN PLACE.NO OTHER NEEDS AT THIS TIME.
[2020-11-23] VITALS (11 sets, daily range): BP systolic 126–157; BP diastolic 88–109; PULSE 44–114; TEMP 97.5–98.9
--- NOTE | 2020-11-23 05:54 | NUR ---
PATIENT HAD A RESTFUL NIGHT.PATIENT IS INDEPENDENT IN THE ROOM.ON NPO FROM MIDNIGHT.SAFETY MEASURES IN PLACE.NO OTHER NEEDS AT THIS TIME.
[2020-11-23 07:02] LABS: BASO # 0.1 (0.0-0.2); BASO % 0.9 % (0.0-2.0); EOS # 1.5 (0.0-0.7); EOS % 13.7 % (0-4.0); GRAN # 6.5 (1.4-6.5); GRAN % 58.5 % (42.2-75.2); HEMOGLOBIN 12.2 g/dl (13.5-18.0); LYMPH # 1.6 (1.2-3.4); MEAN CELL VOLUME 93 fl (80.0-100.0); MEAN CORPUSCULAR HEMOGLOBIN 31 pg (27.0-31.0); MEAN CORPUSCULAR HGB CONC 33 g/dl (33.0-37.0); MEAN PLATELET VOLUME 10.8 fl (7.4-10.4); MONO # 1.4 (0.1-0.6); MONO % 12.4 % (1.7-9.3); PLATELET COUNT 451 K/mm3 (130-400); RED BLOOD COUNT 3.97 M/mm3 (4.20-5.60); REDCELL DISTRIBUTION WIDTH-CV 14.3 % (11.5-14.5)
[2020-11-23 07:04] LABS: HEMATOCRIT 36.8 % (42.0-52.0)
[2020-11-23 07:24] LABS: CALCIUM 8.5 mg/dL (8.4-10.2); CREATININE, serum 1.59 (0.66-1.25); POTASSIUM 4.1 mmol/L (3.4-5.0)
--- NOTE | 2020-11-23 08:16 | NUR ---
Patient in bed resting. Alert and oriented x 3. Assessment complete. Patient denies pain at this time. Consent signed. Preop fluids per orders. Patient denies further needs at this time.
--- NOTE | 2020-11-23 08:31 | NUR ---
Patient to EGD.
--- NOTE | 2020-11-23 08:32 | NUR ---
Patient to ETHEL>
--- NOTE | 2020-11-23 09:45 | NUR ---
Patient back from ETHEL by wheelchair. Denies needs at this time
--- NOTE | 2020-11-23 11:02 | NUR ---
Notified hospitalist of increased BP. No new orders at this time.
--- NOTE | 2020-11-23 12:28 | NUR ---
Contacted Hospitalist, Sophy BOGGS, patient continues having high BP. No new orders at this time.
--- NOTE | 2020-11-23 18:15 | NUR ---
Patient doing well throughout the day, Spouse at bedside. Up ambulating in room with steady gait. Patient denies pain at this time. Denies further needs at this time.
--- NOTE | 2020-11-23 19:50 | NUR ---
PATIENT SITTING UP IN BED, SPOUSE AT BEDSIDE. IV ABX INFUSING. LEFT THIGH RED AND SWOLLEN, WARM TO TOUCH. PATIENT INDEPENDENT IN ROOM. DENIES ANY PAIN AT THIS TIME. CALL LIGHT IN REACH. WILL CONTINUE TO MONITOR.
[2020-11-24 04:02] VITALS: BP 135/86; PULSE 69; TEMP 98.4
--- NOTE | 2020-11-24 05:37 | NUR ---
PATIENT HAD A GOOD NIGHT. RECEIVED TYLENOL FOR HEADACHE. OVERNIGHT PATIENT PATIENT CONVERTED TO NSR AND BACK TO AFIB. NO ISSUES AT AT THIS TIME. WILL CONTINUE TO MONITOR.
[2020-11-24 07:09] LABS: BASO # 0.1 (0.0-0.2); BASO % 0.9 % (0.0-2.0); EOS # 1.6 (0.0-0.7); EOS % 14.7 % (0-4.0); GRAN # 6.4 (1.4-6.5); GRAN % 60.4 % (42.2-75.2); HEMATOCRIT 39.7 % (42.0-52.0); HEMOGLOBIN 12.9 g/dl (13.5-18.0); LYMPH # 1.3 (1.2-3.4); LYMPH % 12.5 % (20.0-51.0); MEAN CELL VOLUME 92 fl (80.0-100.0); MEAN CORPUSCULAR HEMOGLOBIN 30 pg (27.0-31.0); MEAN CORPUSCULAR HGB CONC 33 g/dl (33.0-37.0); MEAN PLATELET VOLUME 10.5 fl (7.4-10.4); MONO # 1.2 (0.1-0.6); MONO % 10.9 % (1.7-9.3); PLATELET COUNT 418 K/mm3 (130-400); REDCELL DISTRIBUTION WIDTH-CV 14.1 % (11.5-14.5)
[2020-11-24 07:31] LABS: CALCIUM 9.1 mg/dL (8.4-10.2); CREATININE, serum 1.61 (0.66-1.25); POTASSIUM 4.1 mmol/L (3.4-5.0)
[2020-11-24 08:17] VITALS: BP 154/96; PULSE 64; TEMP 98.3
--- NOTE | 2020-11-24 08:20 | NUR ---
Patient in bed resting. Alert and oriented x 3. Assessment complete. Denies pain at this time. Spouse at bedside. States he is tired of being here and would like to go home. Denie further needs at this time.
[2020-11-24 11:25] VITALS: BP 136/87; PULSE 68; TEMP 98.3
--- NOTE | 2020-11-24 11:40 | NUR ---
Hospitalist in to see patient.
--- NOTE | 2020-11-24 13:55 | NUR ---
packing line worker met with patient and spouse and presented IM. Worker provided medical records contact number so that spouse can obtain record for their insurance. Pharmacy will provide patient with coupon for one month free for eliquis and then patient states they will pay and look to change medication insurance to accommodate this medication coverage. Patient plans to return home possible tomorrow.
[2020-11-24 16:03] VITALS: BP 110/69; PULSE 50; TEMP 98.2
--- NOTE | 2020-11-24 19:10 | NUR ---
Patient doing well throughout the day. Spouse at bedside. Denies further needs at this time. Reported off to greens picker.
[2020-11-24 19:39] VITALS: BP 132/92; PULSE 93; TEMP 97.6
--- NOTE | 2020-11-24 20:50 | NUR ---
Pt. sitting up in bed. Pt. is a&OX3, assessment complete. INT to rt. ac patent. Pt. denies pain or other needs, call light within reach.
[2020-11-25 04:55] VITALS: BP 128/91; PULSE 66; TEMP 98.3
[2020-11-25 07:44] VITALS: BP 138/101; PULSE 83; TEMP 98.3
[2020-11-25 08:26] LABS: CALCIUM 9.5 mg/dL (8.4-10.2); CREATININE, serum 1.64 (0.66-1.25); POTASSIUM 3.9 mmol/L (3.4-5.0)
--- NOTE | 2020-11-25 09:42 | NUR ---
PT SITTING UP IN BED EATING BREAKFAST. AT BEDSIDE. AM MEDS GIVEN ORDERED. PT HAS SOME DEFICITS R/T PRIOR CVA. SPEECH IS A LITTLE SLURRED AT TIMES. ABLE TO TAKE AM MEDS PO WITH NO DIFFICULTIES. VSS. POSSIBLE DISCHARGE LATER TODAY.
[2020-11-25] MEDS ORDERED: ELIQUIS 5MG PO (10:06)
[2020-11-25] MEDS ORDERED: BETAPACE 120MG120 MG PO (10:08)
[2020-11-25] MEDS ORDERED: NORVASC 10MG10 MG PO (10:14)
--- NOTE | 2020-11-25 12:05 | NUR ---
DISCHARGE INSTRUCTIONS REVIEWED WITH PT AND . QUESTIONS SOLICITED AND ANSWERED. INT REMOVED FROM RAC.
--- NOTE | 2020-11-25 13:09 | NUR ---
DISCHARGE INSTRUCTIONS REVIEWED AND QUESTIONS ANSWERED. PT LEFT FLOOR PER WHEEL CHAIR.
== END 2020-11-25 13:10 | disposition home or self-care (01) | DRG 698 ==
LOC: SURG 12:27
PROVIDERS: Internal Medicine; Nurse Practitioner Family; Physician Assistant; ADMIT Student in an Organized Health Care Education/Training Program
PROC: B24BZZ4 Ultrasonography of Heart with Aorta, Transesophageal (ICD-10-PCS; principal; 2020-11-23)
DX: N28.0 Ischemia and infarction of kidney (principal); J96.01 Acute respiratory failure with hypoxia; N12 Tubulo-interstitial nephritis, not specified as acute or chronic; I69.351 Hemiplegia and hemiparesis following cerebral infarction affecting right dominant side; E87.1 Hypo-osmolality and hyponatremia; R47.01 Aphasia; I50.20 Unspecified systolic (congestive) heart failure; I13.0 Hypertensive heart and chronic kidney disease with heart failure and stage 1 through stage 4 chronic kidney disease, or unspecified chronic kidney disease; I48.19 Other persistent atrial fibrillation; N10 Acute pyelonephritis; B94.8 Sequelae of other specified infectious and parasitic diseases; N20.0 Calculus of kidney; I25.2 Old myocardial infarction; I95.9 Hypotension, unspecified; I25.10 Atherosclerotic heart disease of native coronary artery without angina pectoris; N18.32 Chronic kidney disease, stage 3b; G47.33 Obstructive sleep apnea (adult) (pediatric); D63.1 Anemia in chronic kidney disease; D72.829 Elevated white blood cell count, unspecified; R31.29 Other microscopic hematuria; I73.9 Peripheral vascular disease, unspecified; E78.5 Hyperlipidemia, unspecified; R94.7 Abnormal results of other endocrine function studies; Z79.01 Long term (current) use of anticoagulants; Z79.82 Long term (current) use of aspirin; Z87.891 Personal history of nicotine dependence
CPT/HCPCS: 99223-AI; 99232-AI; 99233-AI; 99239; J0696; J1650; J1940; J2543; J2704; J3475; J7030

== ENCOUNTER 2021-08-10 13:30 | Outpatient (RCR) | payer MEDICARE, BC ==
[~2021-08-10 13:30] MED LIST changes: +BETAPACE 120MG120 MG PO; +ELIQUIS 5MG PO; +FLONASEALLERGY NS; +NORVASC 10MG10 MG PO; +SYNTHROID0.088 MG/T PO
== END 2021-08-14 | disposition home or self-care (01) ==
LOC: WSST
DX: I69.328 Other speech and language deficits following cerebral infarction (principal)

== ENCOUNTER 2021-08-25 07:58 | Outpatient (CLI) | payer MEDICARE, BC ==
[~2021-08-25] VITALS: Ht 180.3 cm; Wt 81.6 kg
[2021-08-25] VITALS (7 sets, daily range): BP systolic 115–142; BP diastolic 67–110; PULSE 84–117; TEMP 97.9
[2021-08-25 08:37] LABS: HEMATOCRIT 48.5 % (42.0-52.0); HEMOGLOBIN 15.9 g/dl (13.5-18.0); MEAN CELL VOLUME 95 fl (80.0-100.0); MEAN CORPUSCULAR HEMOGLOBIN 31 pg (27-31); MEAN CORPUSCULAR HGB CONC 33 g/dl (33.0-37.0); MEAN PLATELET VOLUME 10.6 fl (7.4-10.4); PLATELET COUNT 322 K/mm3 (130-400); RED BLOOD COUNT 5.13 M/mm3 (4.20-5.60); REDCELL DISTRIBUTION WIDTH-CV 14.4 % (11.5-14.5)
[2021-08-25 08:49] LABS: CALCIUM 10.3 mg/dL (8.4-10.2); CREATININE, serum 1.87 mg/dL (0.72-1.25); POTASSIUM 4.3 mmol/L (3.5-4.5)
[2021-08-25] MEDS ORDERED: NORCO 325 MG-51 TAB PO (08:57)
[2021-08-25] MEDS ORDERED: ZESTRIL 5MG5 MG PO (08:59)
[2021-08-25 09:01] LABS: INR 1.3 (0.8-3.0); PROTHROMBIN TIME 14.7 SECONDS (9.7-12.8)
[2021-08-25] MEDS ORDERED: NIZORAL CREAM15 GM TP (09:01)
[2021-08-25] MEDS ORDERED: SINGULAIR 110 MG/TAB PO (09:03)
[2021-08-25] MEDS ORDERED: BETAPACE160 MG PO (11:00)
--- NOTE | 2021-08-25 11:50 | NUR ---
Discharge instructions given to pt.Pt verbalzies understanding.INT removed,catheter tip intact.Pt escorted out via wheelchair by Lucas Carr.
[2021-08-26 15:04] LABS: FACTOR V 58 % (70-120)
[2021-08-27 10:38] LABS: ANTI-THROMBIN III 97 % (72-128)
[2021-08-27 10:42] LABS: PROTEIN C ACTIVITY 96 % (70-150)
[2021-08-28 11:59] LABS: VW COAG FACTOR 89 % (55 - 200); VW FACTOR ACTIVITY 159 % (55 - 200)
[2021-08-28 12:17] LABS: VW FACTOR ANTIGEN 218 % (55 - 200)
== END 2021-08-25 12:12 ==
LOC: COL.RAD 07:58
PROVIDERS: Internal Medicine Cardiovascular Disease
DX: I51.7 Cardiomegaly (principal); I63.9 Cerebral infarction, unspecified
CPT/HCPCS: J7120

== ENCOUNTER 2021-09-08 10:30 | Outpatient (RCR) | payer MEDICARE, BC ==
[~2021-09-08 10:30] MED LIST changes: +BETAPACE160 MG PO; +SINGULAIR 110 MG/TAB PO
== END 2021-09-14 | disposition home or self-care (01) ==
LOC: WSST
DX: I69.320 Aphasia following cerebral infarction (principal); I69.390 Apraxia following cerebral infarction

== ENCOUNTER 2021-09-10 14:28 | Outpatient (RCR) | payer SELFPAY | END 2021-09-14 | disposition home or self-care (01) | LOC: COL.CR | DX: Z02.89 Encounter for other administrative examinations (principal) | CPT/HCPCS: J2704 ==

== ENCOUNTER 2021-10-13 10:30 | Outpatient (RCR) | payer MEDICARE, BC | END 2021-10-14 | disposition home or self-care (01) | LOC: WSST | DX: I69.320 Aphasia following cerebral infarction (principal); I69.390 Apraxia following cerebral infarction ==

== ENCOUNTER 2021-10-13 14:47 | Outpatient (RCR) | payer SELFPAY | END 2021-10-14 | LOC: COL.CR | DX: Z29.8 Encounter for other specified prophylactic measures (principal) ==

== ENCOUNTER 2021-11-01 10:30 | Outpatient (RCR) | payer MEDICARE, BC ==
[2021-11-12] MEDS ORDERED: ASPIRIN 32325 MG/TAB PO (12:16)
[2021-11-12] MEDS ORDERED: WELLBUTRIN XL300 M1 PO (12:18)
[2021-11-12] MEDS ORDERED: SYNTHROID0.1 MG/TAB PO (12:20)
[2021-11-12] MEDS ORDERED: ZOVIRAX5% TOP (12:22)
[2021-11-12] MEDS ORDERED: METOPROLOL TART75 MG PO (12:46)
== END 2021-11-14 | disposition home or self-care (01) ==
LOC: WSST
DX: I69.320 Aphasia following cerebral infarction (principal); I69.390 Apraxia following cerebral infarction

== ENCOUNTER 2021-11-01 15:23 | Outpatient (RCR) | payer SELFPAY ==
[2021-11-12] MEDS ORDERED: ASPIRIN 32325 MG/TAB PO (12:16)
[2021-11-12] MEDS ORDERED: WELLBUTRIN XL300 M1 PO (12:18)
[2021-11-12] MEDS ORDERED: SYNTHROID0.1 MG/TAB PO (12:20)
[2021-11-12] MEDS ORDERED: ZOVIRAX5% TOP (12:22)
[2021-11-12] MEDS ORDERED: METOPROLOL TART75 MG PO (12:46)
== END 2021-11-14 ==
LOC: COL.CR
DX: Z29.8 Encounter for other specified prophylactic measures (principal)

== ENCOUNTER 2021-11-04 10:23 | Emergency (ER) | payer MEDICARE, BC ==
[2021-11-04 10:25] VITALS: TEMP 98.8
[2021-11-04 10:38] LABS: BASO # 0.1 K/mm3 (0.0-0.2); BASO % 1.1 % (0.0-2.0); EOS # 0.4 K/mm3 (0.0-0.7); EOS % 4.2 % (0.0-4.0); GRAN # 5.8 K/mm3 (1.4-6.5); GRAN % 66.1 % (42.2-75.2); HEMATOCRIT 43.2 % (42.0-52.0); LYMPH # 1.7 K/mm3 (1.2-3.4); LYMPH % 18.8 % (20.0-51.0); MEAN CELL VOLUME 94 fl (80.0-100.0); MEAN CORPUSCULAR HEMOGLOBIN 30 pg (27-31); MEAN CORPUSCULAR HGB CONC 32 g/dl (33.0-37.0); MEAN PLATELET VOLUME 10.2 fl (7.4-10.4); MONO # 0.8 K/mm3 (0.1-0.6); MONO % 9.2 % (1.7-9.3); PLATELET COUNT 373 K/mm3 (130-400); RED BLOOD COUNT 4.62 M/mm3 (4.20-5.60); REDCELL DISTRIBUTION WIDTH-CV 14.2 % (11.5-14.5)
[2021-11-04 10:55] LABS: ALBUMIN 3.6 gm/dL (3.4-4.8); CREATININE, serum 2.18 mg/dL (0.72-1.25); MAGNESIUM 2.1 mg/dL (1.6-2.6); PHOSPHOROUS 2.3 mg/dL (2.3-4.7); POTASSIUM 4.5 mmol/L (3.5-4.5)
[2021-11-04 11:01] LABS: TROPONIN-I 0.018 ng/mL (0.00-0.033)
[2021-11-04 18:33] VITALS: BP 151/110; PULSE 68
== END 2021-11-04 18:35 | disposition short-term general hospital (02) ==
LOC: COL.ER 10:23
PROVIDERS: Emergency Medicine
DX: I69.351 Hemiplegia and hemiparesis following cerebral infarction affecting right dominant side (principal); I65.23 Occlusion and stenosis of bilateral carotid arteries; I48.0 Paroxysmal atrial fibrillation; G47.33 Obstructive sleep apnea (adult) (pediatric); Z99.89 Dependence on other enabling machines and devices; Z79.01 Long term (current) use of anticoagulants; Z20.822 Contact with and (suspected) exposure to COVID-19; Z28.310 Unvaccinated for COVID-19
CPT/HCPCS: J1953; J7120; Q9967

== ENCOUNTER 2021-11-12 11:06 | Inpatient (IN) | payer MEDICARE, BC ==
[~2021-11-12] VITALS: Ht 180.3 cm; Wt 79.1 kg
[2021-11-12] MEDS ORDERED: ASPIRIN 32325 MG/TAB PO (12:16)
[2021-11-12] MEDS ORDERED: WELLBUTRIN XL300 M1 PO (12:18)
[2021-11-12] MEDS ORDERED: SYNTHROID0.1 MG/TAB PO (12:20)
[2021-11-12] MEDS ORDERED: ZOVIRAX5% TOP (12:22)
[2021-11-12] MEDS ORDERED: METOPROLOL TART75 MG PO (12:46)
[2021-11-12 17:05] VITALS: BP 165/102; PULSE 51; TEMP 97.7
--- NOTE | 2021-11-12 23:00 | NUR ---
PT IN BED WITH BED ALARM SET AT THIS TIME. PT REPEATEDLY EDUCATED CREAM CHEESE MAKER LIGHT UTILIZATION HOWEVER, CONTINUES TO ABRUPTLY LEAVE BED TO USE RESTROOM WITH NO ASSIST. SMALL SKIN TEAR NOTED WITH FRESH BLOOD ON RIGHT ARM. TEAR CLEANED AND DRESSED WITH 4X4 AND KERLIX. WILL CONTINUE TO MINITOR CLOSELY.
[2021-11-13 05:39] VITALS: BP 153/99; PULSE 71; TEMP 98.5
--- NOTE | 2021-11-13 06:40 | NUR ---
Shift report received from film processing shift supervisor RN.
--- NOTE | 2021-11-13 07:17 | NUR ---
Bed alarm sounding. When this nurse arrived to room, pt. noted to be in bathroom on toilet. SBA provided while pt ambulated back to bed. Bed alarm turned on. Call light is within his reach
--- NOTE | 2021-11-13 09:32 | NUR ---
Pt currently off unit to work with PT/OT
--- NOTE | 2021-11-13 11:02 | NUR ---
Initial visit; Patient out for tests, Perch Machine Inspector spoke with his who and just been discharged from the hospital and knows Perch Machine Inspector. She is doing well and states that she thinks Flo will be fine also. Perch Machine Inspector offered them both God's blessings and will keep them in her prayers.
--- NOTE | 2021-11-13 13:03 | NUR ---
Pt fell in bathroom while attempting to sit down on the toilet. Nurse in bathroom with during time of fall. Pt. thinks he hit his right lower shoulder blade on toilet as he fell to the floor. Red thee noted on skin where back impacted the toilet. Skin is intact. No c/o hip pain, elbow pain, back pain. No head injury. Dr. Mckeon notified - will order an x-ray.
[2021-11-13 13:09] VITALS: BP 111/79; PULSE 46; TEMP 97.7
--- NOTE | 2021-11-13 14:52 | NUR ---
Pt resting in bed. Arouses easily from sleep. in the room to visit. She was updated on fall, XR of right shoulder. She had no further questions. Pt. denies pain/discomfort. Denies additional needs. Call light is within his reach. Bed alarm is on
--- NOTE | 2021-11-13 17:22 | NUR ---
This nurse was in a pt room to administer meds to another pt. Call light and bed alarm started sounding. OPERATING SYSTEM DESIGNER's x 2 ran to pt. room to find pt. already standing at the bedside attempting to go to the bathroom. Pt. assisted to bathroom and reminded to use call light for any needs/toileting needs. Pt. "growled" in response. Pt. assisted back to bed after toileting. Bed alarm is on.
[2021-11-13 17:57] VITALS: BP 124/86; PULSE 66; TEMP 98.3
[2021-11-13 20:28] VITALS: BP 129/60
[2021-11-14 05:27] VITALS: BP 105/49; PULSE 73; TEMP 98.4
--- NOTE | 2021-11-14 06:43 | NUR ---
Shift report received from knot bumper RN. Pt. sleeping in right side lying position. Call light is within his reach. Bed alarm is on
--- NOTE | 2021-11-14 08:01 | NUR ---
Pt assisted to toilet using gait belt. Gait unsteady. Assisted back to bed. Bed alarm is on
--- NOTE | 2021-11-14 09:28 | NUR ---
This typewriter assembler was in another pt room to provide care. Bed alarm sounding. When this typewriter assembler entered the room, pt was standing and stumbling towards bathroom. Pt. assisted to the toilet then back to bed. Bed alarm turned back on. Call light is within his reach
--- NOTE | 2021-11-14 12:09 | NUR ---
This script writer was at nurse's desk to chart. Bed alarm sounding. Pt noted to be already standing and stumbling towards bathroom. Pt. assisted to toilet (CGA) and then to bed. He denies pain/discomfort. Bed alarm is on. Chair alarm placed on bed because bed alarm seemed delayed. (Pt. was nearly standing when bed alarm finally sounded). Call light is within his reach
--- NOTE | 2021-11-14 13:18 | NUR ---
Pt observed attempting to get out of bed w/out assistance or calling for help. Pt. assisted to bathroom with gait belt on. Pt. assisted back to bed. Call light within his reach. Bed alarm and chair alarm (placed on mattress) are on
--- NOTE | 2021-11-14 15:03 | NUR ---
Pt observed trying to get out of bed. Nurse went to bedside before bed/chair alarms sounded. Pt. assisted to bathroom using gait belt. CGA provided. Pt. assisted to bed after toileting. Bed/chair alarm turned back on. Call light is within his reach
--- NOTE | 2021-11-14 15:59 | NUR ---
Pt observed trying to get out of bed w/out assistance or calling for help. This blog writer was at the bedside before bed/chair alarms sounded. Pt. assisted to bathroom with gait belt on. CGA provided. Gait remains unsteady. Pt. assisted to bed after toileting. Bed/chair alarms turned back on. Call light is within his reach
[2021-11-14 17:18] VITALS: BP 120/83; PULSE 92; TEMP 98.7
--- NOTE | 2021-11-14 17:29 | NUR ---
Bed alarm sounding. Pt. attempting to get out of bed w/out assistance or calling for help. Pt. assisted to bathroom with CGA. Pt. assisted back to bed to finish eating dinner. Call light is within his reach. Bed/chair alarm are turned on
--- NOTE | 2021-11-14 19:00 | NUR ---
RECEIVED CHANGE OF SHIFT REPORT FROM DAY SHIFT RN, PATIENT RESTING IN BED DURING REPORT WITH AT BEDSIDE. EXIT ALARM ON WHEN IN BED WITH CALL LIGHT WITHIN REACH. DENIES ANY NEEDS DURING REPORT.
--- NOTE | 2021-11-14 20:26 | NUR ---
PATIENT UP, DID NOT USE CALL LIGHT, SET OFF BED EXIT ALARMS. ABLE TO PLACE GAIT BELT ON PATIENT PRIOR TO PATIENT TRANSITIONING FROM SITTING AT SIDE OF BED TO STANDING. STRIDE EVEN AND STEADY WALKING TO BATHROOM.
--- NOTE | 2021-11-14 23:10 | NUR ---
PATIENT UP WITHOUT CALLING STAFF, SETS OFF EXIT ALARMS, ALREADY ENTERING BATHROOM, GAIT BELT PLACED ON PATIENT ONCE SITTING ON TOILET, PATIENT AGREEABLE TO HAVING GAIT BELT PLACED ON. WHEN PATIENT BACK IN BED, EXIT ALRMS CONTINUES, PATIENT REMINDED TO CALL/WAIT FOR STAFF TO WALK WITH PATIENT TO/FROM BATHROOM, PATIENT DID NOT RESPOND TO INSTRUCTIONS, OBSERVED BEFORE BY THIS NURSE.
--- NOTE | 2021-11-15 01:26 | NUR ---
PATIENT UP, SETTING OFF EXIT ALARMS, DID NOT USE CALL LIGHT/NOR WAIT FOR STAFF BEFORE ALREADY STANDING AT SIDE OF BED UPON NURSING ENTERING ROOM, PATIENT COOPERATIVE IN HAVING GAIT BELT PUT IN PLACE TO WAIST. OBSERVED STEADY GAIT INTO AND OUT OF BATHROOM GOING BACK TO BED. AGAIN REMINDED PATIENT TO USE CALL LIGHT AND WAIT FOR STAFF BEFORE GETTING UP TO WALK TO BATHROOM. EXIT ALARMS ON WHEN PATIENT BACK IN BED, CALL LIGHT WITHIN REACH.
--- NOTE | 2021-11-15 02:31 | NUR ---
PATIENT UP WITHOUT CALL TO/WAITING FOR NURSING/STAFF WITH ASSISTING PATIENT OUT OF BED PER FALL PREC/HOSP POLICY/PROTOCOL, EXIT ALARMS TRIGGERED, ALREADY TO BATHROOM WHEN NURSING ARRIVED TO ROOM ONCE EXIT ALARMS WENT OFF. GAIT BELT PLACED ONCE PATIENT ON TOILET,PATIENT COOPERATIVE W/GAIT BELT PLACEMENT. EXIT ALARMS ON WHEN PATIENT BACK IN BED WITH CALL LIGHT WITHIN REACH. REMINDED PATIENT AGAIN TO CALL FOR/WAIT FOR STAFF TO WALK WITH PATIENT WHEN OOB. DENIES ANY OTHER NEEDS CURRENTLY.
--- NOTE | 2021-11-15 03:55 | NUR ---
OBSERVED MOVEMENT IN ROOM, CALL LIGHT WITHIN REACH, CALL LIGHT NOT ACTIVIATED, OBSERVED PATIENT ATTEMPTING TO GET OUT OF BED, PATIENT ALLOWED GAIT BELT TO BE PLACED, NURSING STAFF PRESENT WITH PATIENT GETTING OOB, GAIT STEADY/PATIENT COOPERATIVE. EXIT ALARMS ON WHEN PATIENT BACK TO BED, CALL LIGHT STILL WITHIN REACH. PATIENT DENIES ANY FURTHER NEEDS.
--- NOTE | 2021-11-15 05:12 | NUR ---
BEFORE, MOVEMENT HEARD IN ROOM, OBSERVED PATIENT ATTEMPTING TO GET OUT OF BED, CALL LIGHT NOT USED, ABLE TO GET GAIT BELT ON PATIENT ONCE PATIENT AGREED TO WAIT FOR STAFF, STAFF PRESENT WHEN PATIENT OOB/WALKING TO BATHROOM. STRIDE STEADY. EXIT ALARMS ON WHEN PATIENT BACK IN BED, CALL LIGHT WITHIN REACH, PATIENT REMINDED TO USE CALL LIGHT FOR STAFF TO BE PRESENT WHEN PATIENT OOB. NO NEEDS REPORTED.
[2021-11-15 05:17] VITALS: BP 125/99; PULSE 69; TEMP 98
--- NOTE | 2021-11-15 07:00 | NUR ---
CHANGE OF SHIFT REPORT GIVEN TO DAY SHIFT RNLUDA.
--- NOTE | 2021-11-15 08:38 | NUR ---
ASSESSMENT DONE ORDER. PATIENT ALERT BUT FORGETFULL TO CALL WHEN TRYING TO GET UP FROM BED. LUNG SOUND CLEAR. BOWEL SOUND ACTIVE. PATIENT ATE ABOUT 80% OF HIS FOOD TODAY. RIGHT SIDE WEAKNESS IS NOTED WITH A SMALL UNSTEADY GAIT. REEDUCATED PATIENT TO USE THE CALL LIGHT WHEN GETTING UP TO PREVENT FALLS. PATIENT STATED THAT HE UNDERSTOOD. PATIENT SPEAK IS SLIGHTLY UNCLEAR. ABLE TO TAKE MEDICATION BUT ONLY 2 AT A TIME. CALL LIGHT IN REACH. BED ALARM IS IN PLACE AND ON.
--- NOTE | 2021-11-15 10:54 | NUR ---
Initial visit; Patient thanked Aquatics Lifeguard for looking in on him and letting him know of the availability of Spiritual Care. Patient appears depressed, Aquatics Lifeguard listened though patient spoke very little though thanked Aquatics Lifeguard for looking in on him and offering God's blessings. Aquatics Lifeguard will follow up.
--- NOTE | 2021-11-15 15:09 | NUR ---
grout worker attempted to check in with patient to introduce myself. Patient sleeping. WIll let patient rest.
[2021-11-15 17:16] VITALS: BP 116/90; PULSE 64; TEMP 98.6
--- NOTE | 2021-11-15 19:02 | NUR ---
RECEIVED CHANGE OF SHIFT REPORT FROM DAY SHIFT RN. PATIENT RESTING IN BED DURING REPORT WITH EXIT ALARMS ON, CALL LIGHT WITHIN REACH. PATIENT REMINDED TO NOTIFY STAFF FOR ANY OOB ACTIVITIES FOR SAFETY, PATIENT VERBALIZING "OK".
--- NOTE | 2021-11-15 19:21 | NUR ---
RUE WEAKNESS CONTINUES WITH GROSS MOTOR MOVEMENT OBSERVED WITH WEAK R HAND DYE PADDER OPERATOR COMPARED TO L HAND DYE PADDER OPERATOR. OBSERVED BLE EQUAL MOVEMENT. OBSERVED FACIAL DROOPING AND SPEECH SLURRED.
--- NOTE | 2021-11-15 22:30 | NUR ---
PATIENT UP OOB WITHOUT USING CALL LIGHT, SETTING OFF EXIT ALARMS/NOT WAITING FOR STAFF TO ASSIST WITH OOB ACTIVITY, PATIENT STANDING IN BATHROOM, ABOUT TO SIT DOWN WHEN STAFF ENTERED ROOM, PATIENT RAISED HAND TO ACKNOWLEDGE NURSING'S PRESENCE. EXIT ALARM ON WHEN BACK IN BED AFTER REPORTING PASSING ANOTHER BM. CALL LIGHT WITHIN REACH, REMINDED PATIENT TO CALL/WAIT FOR STAFF WHEN WANTING TO GET OOB AND VERBALIZED "OK" IN RESPONSE.
--- NOTE | 2021-11-15 23:36 | NUR ---
PATIENT USED CALL LIGHT TO LET NURSING KNOW HE NEEDED TO USE RESTROOM. PATIENT AMBULATED TO BATHROOM WITH STAFF PRESENT, GAIT STEADY. WHEN ASKED HE HAD A BM, PATIENT RESPONDED "YES". EXIT ALARM ON WHEN PATIENT BACK TO BED WITH CALL LIGHT WITHIN REACH.
--- NOTE | 2021-11-16 00:34 | NUR ---
PATIENT SITTING AT SIDE OF BED, ATTEMPTING TO GET UP OOB, DID NOT USE CALL LIGHT, SETTING OFF EXIT ALARMS. PATIENT ALLOWED GAIT BELT TO BE PLACED, OBSERVED SOME UNSTEADINESS WITH PIVOTING IN PLACE PRIOR TO SITTING DOWN ON TOILET SEAT. EXIT ALARMS ON WHEN PATIENT BACK IN BED WITH CALL LIGHT WITHIN REACH. PATIENT DENIES ANY NEEDS AT THIS TIME.
[2021-11-16 04:11] VITALS: BP 133/89; PULSE 54; TEMP 98.7
--- NOTE | 2021-11-16 07:06 | NUR ---
BEDSIDE REPORT DONE, PATIENT RESTING IN ROOM WITH EYES CLOSED. CALL LIGHT IN REACH.
--- NOTE | 2021-11-16 07:11 | NUR ---
CHANGE OF SHIFT REPORT GIVEN TO DAY SHIFT RNLUDA.
--- NOTE | 2021-11-16 09:40 | NUR ---
PATIENT RESTING DURING MY ASSESSMENT. LUNG CLEAR IN ALL LOBES. BOWEL SOUND ACTIVE IN ALL 4 QUADS. PATIENT ABLE TO GET UP WITH ADRYAN ASSISTANCE BUT WITH SLIGHTLY UNSTEADY GAIT. RIGHT SIDE IS AFFECTED. PATIENT STILL HAVING ISSUE UNDERSTAND TO USE CALL LIGHT WHEN GETTING UP TO USE THE RESTROOM. PATIENT REFUSED TO USE THE SCD AT THIS TIME. ATE ABOUT 100% OF HIS BREAKFAST. CALL LIGHT IN REACH. BED ALARM IS ON TO PREVENT ANY FALLS
--- NOTE | 2021-11-16 12:00 | NUR ---
Pt. attempting to get out of bed w/out assistance or calling for help. Bed/chair alarm sounding. Pt. assisted to toilet with SBA, gait belt then assisted back to bed. Pt. denies pain/discomfort. Call light within his reach. Bed/chair alarms turned back on
--- NOTE | 2021-11-16 14:08 | NUR ---
OFFER TO PLACE THE SCD, PATIENT REFUSED TODAY
--- NOTE | 2021-11-16 15:30 | NUR ---
ARNOLDO met with patient and patient's Devin at bedside. Devin reports that she just got out of the hospital two days ago. Per Devin, the patient has been independent at home with his ADL's needing minimal help from her with showering. He is able to ambulate on his own and does not have any home oxygen needs. PCP is and they utilize [facility] pharmacy for prescriptions. Patient does have a DPOA-HC established listing Devin as his agent . ARNOLDO talked with Devin to see if she would be able to attend a family meeting at 1015 on 11/17. Devin states that she will be able to attend. [facility] director notified. Devin states that she has HH established for herself and would like for the patient to return home with HH once ready. Informed her the team will discuss all of this in the morning.
[2021-11-16 17:10] VITALS: BP 123/83; PULSE 98; TEMP 97.8
--- NOTE | 2021-11-16 18:08 | NUR ---
Pt attempting to get out of bed w/out assistance or calling for assistance. Bed/chair alarms sounding. Nurse assisted pt. to bathroom then back to bed. Call light is within his reach. Bed/chair alarms turned back on
--- NOTE | 2021-11-16 19:19 | NUR ---
GAVE REPORT TO NIGHT NURSE JALEEL REGARDING PATIENT CARE.
--- NOTE | 2021-11-16 19:46 | NUR ---
RECEIVED CHANGE OF SHIFT REPORT FROM DAY SHIFT RN. PATIENT RESTING IN BED, EXIT ALARM ON WITH CALL LIGHT WITHIN REACH.
[2021-11-17 04:44] VITALS: BP 130/91; PULSE 57; TEMP 98
--- NOTE | 2021-11-17 06:52 | NUR ---
Bed alarms sounding. By the time this verse writer entered pt's room, he was already inside of his bathroom. Pt. assisted back to bed after toileting. Call light is within his reach. Reminded pt to call for assistance. Bed/chair alarms turned back on
--- NOTE | 2021-11-17 06:53 | NUR ---
Shift report received from coater carbon paper RN
--- NOTE | 2021-11-17 06:58 | NUR ---
CHANGE OF SHIFT REPORT GIVEN TO DAY SHIFT RNDEVIKA.
--- NOTE | 2021-11-17 08:19 | NUR ---
Pt observed attempting to get out of bed w/out calling for assistance. This nurse was at his bedside before he fully stood up and before bed/chair alarms sounded. Pt. was assisted to the bathroom. PT in room to work with pt. and ambulate with pt. to the PT gym.
--- NOTE | 2021-11-17 10:59 | NUR ---
ST in room working with patient. Pt had a gauze dressing wrapped with coban to right ac area covering a skin tear. Pt. pulled the dressing off. Healing skin tear noted, skin flap present. No bleeding. Site cleaned with NS and covered with tegaderm. ST remains at bedside to work with pt. Call light is within his reach. Bed/chair alarms are on
--- NOTE | 2021-11-17 15:57 | NUR ---
Pt. assisted to bed after toileting. He denies pain/discomfort. in the room to visit. Call light is within his reach. Bed/chair alarms are on
--- NOTE | 2021-11-17 16:38 | NUR ---
SW attended team meeting this morning. Barriers addressed are the patients impulsivity, weakness and aphasia. Post meeting family meeting held with the patient and his Devin. Also in attendance is , IPR director, PT,OT and ST. Patient process discussed as well as his barriers. At this time it the patient could potentially discharge home with HH and private duty caregivers, however post meeting Devin brought up the idea of SNF's for the patient. ARNOLDO will present her with her options.
--- NOTE | 2021-11-17 16:46 | NUR ---
Pt. observed getting out of bed without calling for assistance. This nurse was at the bedside before pt. stood up and before bed/chair alarms sounded. Pt. assisted to toilet then back to bed. Call light is within his reach. Bed/chair alarms turned back on
[2021-11-17 16:51] VITALS: BP 112/84; PULSE 65; TEMP 97.8
--- NOTE | 2021-11-17 17:39 | NUR ---
Pt attempting to get out of bed w/out calling for assistance. Bed/chair alarms were sounding. Nurse at bedside and assisted pt. to bathroom. Pt. assisted back to bed to finish eating dinner. Call light is within his reach. Bed/chair alarms turned back on
[2021-11-17 21:01] VITALS: BP 123/87; PULSE 76
[2021-11-18 04:31] VITALS: BP 123/86; PULSE 96; TEMP 97.7
--- NOTE | 2021-11-18 04:56 | NUR ---
pt has used call button a few times tonight but when staff asks if he needs assistance, pt is unable to verbalize specific needs. setting bed alarm off hourly to get up to restroom, is getting better about sitting on edge of bed and waiting for staff to arrive before standing, steady gait, using cane to ambulate. passing gas, but no bm this shift, denies feeling constipated.
--- NOTE | 2021-11-18 16:11 | NUR ---
SW met with patient and patient's at bedside to review team conference notes. Verbally review notes with them and hard copy provided. SW had a detailed discussion with the patient's about their options to return home with HH, HH and private duty caregivers or SNF. Per Devin, home with HH is not an option at this time. She does not feel as if she is able to take care of the patient when HH is not there. She is open to home with HH and private duty caregivers, but feels as if the patient is still to impulsive. Devin is also fearful that the patient will get home and refuse to work with anyone. Her choice is for the patient to go to a SNF. The [employer] list of SNF facilities are provided to her. Her first choice is [facility], second choice is [facility] and her third choice is [facility]. Informed Devin that i will send a referral to each of the facilities and it will depend on who has a bed available. SNF referrals faxed to : [facility], [facility], [facility]
[2021-11-18 17:23] VITALS: BP 125/94; PULSE 85; TEMP 97.9
--- NOTE | 2021-11-18 20:30 | NUR ---
PT RESTING IN BED WATCHING SPORTS. PT HAS APHASIA. RIGHT SIDED WEAKNESS. MORE IN THE RT ARM THAN LEG. ASSIST TO BR. PT ABLE TO MANAGE PANTS UP AND DOWN AND HYGEINE PER SELF. DOES HAVE SOME POOR SAFETY JUDGEMENTS. REMINDED PT IT IS IMPERATIVE HE USES CALL LIGHT FOR ASSISTANCE AND WAIT UNTIL STAFF COMES TO HELP BEFORE GETTING UP. PT AGREED.
--- NOTE | 2021-11-18 23:49 | NUR ---
PT HAS BEEN IMPULSIVELY GETTING UP TO SIDE OF BED. ALARM SOUNDING. PT HAVING TO GO TO THE BR FREQUENTLY. PT ANSWERS YES WHEN ASKED IF HE FEELS HE IS EMPTYING HIS BLADDER. WILL DO A BLADDER SCAN ON NEXT VOID. PT ANNALISE WHEN TOLD HE NEEDS TO USE CALL LIGHT BEFORE GETTING UP. RATIONALE PROVIDED. PT SHAKES HIS HEAD.
--- NOTE | 2021-11-19 00:50 | NUR ---
PT AGAIN IMPULSIVELY GOT OUT OF BED AND ON HIS WAY TO BR. VOIDED 145. BACK TO BED. BLADDER SCANNER READ 145CC RESIDUAL. CALL LIGHT IN REACH. BED ALARM SET.
[2021-11-19 03:54] VITALS: BP 124/88; PULSE 52; TEMP 97.8
--- NOTE | 2021-11-19 04:03 | NUR ---
BED ALARM SOUNDING. PT UP TO BR. ENC PT TO USE CALL LIGHT FOR ASSIST.
--- NOTE | 2021-11-19 06:56 | NUR ---
PT HAS BEEN VOIDING CLEAR YELLOW URINE VERY FREQUENTLY. PT DENIES PAIN WITH VOID. VOIDING APPROXIMATELY 150CC EACH TIME. BLADDER SCANNED X1 WITH 145CC RESIDUAL. REPORTED THIS TO NEXT SHIFT RN. PT UP TO RECLINER WITH CHAIR ALARM SET. CALL LIGHT IN REACH.
--- NOTE | 2021-11-19 14:59 | NUR ---
[facility] is able to accept this patient for a SNF stay on 11/23. Tori with [facility] states that she has talk with the patient's and that Devin is ok with private paying if the patient is only to skill under his insurance for a short time.
[2021-11-19 17:54] VITALS: BP 125/84; PULSE 64; TEMP 98.1
--- NOTE | 2021-11-19 19:43 | NUR ---
BED ALARM SOUNDINGL. PT IMPULSIVELY GETTING UP TO BR. VOIDED. PT AGREES STILL VOIDING FREQUENTLY. NO DYSURIA, FEVER OR FLANK PAIN. URINE IS CLEAR YELLOW. WILL CONTINUE TO MONITOR. CALL LIGHT IN REACH. BED ALARM SET.
--- NOTE | 2021-11-19 20:55 | NUR ---
PT REFUSING TO USE CALL LIGHT FOR ASSIST TO BR. PT FAIRLY STEADY. RT SIDED WEAKNESS. PT STILL HAVING FREQ VOIDS.
--- NOTE | 2021-11-19 21:00 | NUR ---
NOTIFIED RICH BOGGS REGARDING FREQ VOIDS. SEE MAR FOR FLOMAX NAD OBTAIN UA.
--- NOTE | 2021-11-19 21:31 | NUR ---
UA OBTAINED AND SENT TO LAB
[2021-11-19 21:33] LABS: COLLECTION METHOD CLEAN CATCH
[2021-11-19 21:39] LABS: PH 6 (5-8); SQUAMOUS EPITHELIAL None Seen /hpf (0-10); URINE APPEARANCE Hazy (CLEAR/HAZY); URINE BACTERIA None Seen /hpf (NONE SEEN); URINE BLOOD Negative (NEGATIVE); URINE COLOR Yellow (YELLOW); URINE GLUCOSE Negative (NEGATIVE); URINE KETONE Negative (NEGATIVE); URINE NITRATE Negative (NEGATIVE); URINE PROTEIN(semi-quant) Negative (NEGATIVE); URINE RBC 0-2 /hpf (0-2); URINE UROBILINOGEN Negative (NEGATIVE)
--- NOTE | 2021-11-19 21:56 | NUR ---
NOTIFIED RICH BOGGS OF UA RESULTS. SEE NEW ORDERS.
[2021-11-20 05:19] VITALS: BP 131/77; PULSE 57; TEMP 97.1
--- NOTE | 2021-11-20 06:48 | NUR ---
Shift report received from night warehouse manager RN. Pt. sleeping supine in bed. Bed alarm is on. Call light is within his reach
--- NOTE | 2021-11-20 07:14 | NUR ---
Pt observed trying to get out of bed w/out calling for assistance. This handbook writer was at the bedside before pt. stood up and before bed alarm sounded. Pt. assisted to bathroom with gait belt, CGA. Pt. assisted back to bed. Bed/chair alarms turned back on
--- NOTE | 2021-11-20 08:57 | NUR ---
TRAIN STATION AGENT reported that bed/chair alarms were sounding. When she entered the room, pt was sitting on the toilet w/out asking for assistance. Pt. was assisted back to bed after toileting. Call light is within his reach. Bed/chair alarms are on
--- NOTE | 2021-11-20 10:05 | NUR ---
Pt attempting to get out of bed w/out calling for assistance. Bed alarms sounding. Pt. assisted to toilet and then back to bed. Pt. declining Group Therapy today. Bed/chair alarms turned back on. Call light is within his reach
--- NOTE | 2021-11-20 17:16 | NUR ---
turned retail personal banker light because pt needed to use the bathroom. Pt. assisted to bathroom with gait belt on then assisted back to bed. Call light is within his reach. Bed alarm is turned on
[2021-11-20 17:19] VITALS: BP 124/75; PULSE 61; TEMP 97.9
--- NOTE | 2021-11-20 21:07 | NUR ---
PT RESTING IN BED. CONTINUES IMPULSIVE BEHAVIOR WITH GETTING UP TO BR PER SELF. STILL HAVING FREQ VOIDS. BEING TREATED FOR UTI. SEE MAR FOR AZO GIVEN. PT HAS RT SIDED WEAKNESS. RT ARM FLACCID. AMB FAIRLY STEADY. CALL LIGHT IN REACH. BED ALARM SET.
[2021-11-21 06:06] VITALS: BP 134/79; PULSE 51; TEMP 97.7
--- NOTE | 2021-11-21 06:48 | NUR ---
Shift report received from nurse school RN. Pt. is awake and watching television in bed. He denies pain/discomfort. Denies further needs. Call light is within his reach. Bed alarm is turned on
--- NOTE | 2021-11-21 08:35 | NUR ---
Bed alarm sounding. Pt. noted to already be in bathroom sitting on toilet when nurse entered the room. Pt. assisted back to bed. Call light is within his reach. Bed alarm turned on
--- NOTE | 2021-11-21 09:25 | NUR ---
Pt resting supine in bed watching television. Tegaderm to skin tear Right ac changed today. Pt. denying pain/discomfort. Call light is within his reach. Bed alarms are on
--- NOTE | 2021-11-21 09:51 | NUR ---
Pt attempting to get out of bed w/out calling for assistance. Bed alarm sounding. Pt. assisted to bathroom and then assisted back to bed. Call light is within his reach. Bed alarm is turned on.
--- NOTE | 2021-11-21 13:47 | NUR ---
Pt attempted to get out of bed w/out calling for assistance. Charge nurse at the bedside before pt. fully stood up. Pt assisted to bathroom and then back to bed. is in the room to visit. Raised toilet seat placed in bathroom. Call light is within pt's reach. Bed/chair alarm turned on
--- NOTE | 2021-11-21 14:35 | NUR ---
Pt attempting to get out bed w/out calling for assistance. overheard telling pt "you have to wait for the nurse". Nurse in room to assist pt. to the toilet. HYDROMETER FINISHER assisted pt. back to bed after toileting. Bed/chair alarms turned back on. Call light is within his reach
[2021-11-21 18:11] VITALS: BP 108/69; PULSE 51; TEMP 98.3
--- NOTE | 2021-11-21 20:45 | NUR ---
PT RESTING IN BED. CALM. ORIENTED. PT STILL IMPULSIVELY GETTING UP TO BR. STILL VOIDING FREQ. TREATING UTI WITH MACROBID AND AZO. DENIES FLANK PAIN OR DYSURIA. ENC PT TO USE CALL LIGHT FOR SAFETY RATIONALE. CALL LIGHT IN REACH. BED ALARM.
[2021-11-22 05:20] VITALS: BP 122/79; PULSE 54; TEMP 98
--- NOTE | 2021-11-22 06:50 | NUR ---
Shift report received from night stocker RN. Pt. assisted to toilet by night stocker RN. Pt. assisted back to bed by this commercial insurance underwriter. Pt. denies pain/discomfort. Denies further needs. Call light is within reach. Bed/chair alarms are on
--- NOTE | 2021-11-22 08:49 | NUR ---
Pt is off the unit to work with PT
--- NOTE | 2021-11-22 09:49 | NUR ---
Pt back from PT. Pt up in recliner chair. Chair alarm is on. Call light is within his reach
--- NOTE | 2021-11-22 13:24 | NUR ---
ARNOLDO contacted Tori at [facility] and confirmed [facility] is good to accept the patient tomorrow, 11/23. ARNOLDO faxed updates to [facility]. ARNOLDO contacted and updated the patient's , Devin. Devin is in agreement to the plan. ARNOLDO read the IM form outloud to Devin over the phone. Devin verbalized understanding and gave SW approval to sign the form on her behalf.
[2021-11-22 17:38] VITALS: BP 113/74; PULSE 57; TEMP 98.3
[2021-11-23 06:01] VITALS: BP 106/78; PULSE 77; TEMP 97.8
--- NOTE | 2021-11-23 06:56 | NUR ---
BEDSIDE REPORT DONE ORDER. PATIENT RESTING IN BED WITH CALL LIGHT IN REACH. DOOR OPEN AND BED ALARM ON
[2021-11-23 09:01] VITALS: BP 97/69
--- NOTE | 2021-11-23 09:09 | NUR ---
ASSESSMENT DONE. PATIENT ALERT X 3 WITH SMALL SPEECH ISSUE. PATIENT LUNG CLEAR IN ALL LOBES. BOWEL SOUND ACTIVE IN ALL 4 QUAD EVEN THOUGH PATIENT CONSTIPATED. PATIENT HAD A SMALL TODAY BUT WAS IN THE BATHROOM FOR ABOUT 30 MIN. BLOOD PRESSURE HAS DECREASE SINCE TRYING TO USE THE RESTROOM. I HELD THE BLOOD PRESSURE MEDICATION DUE TO LOW BLOOD PRESSURE AND ASK INTHE DOCTOR AOBUT IT. WHEN I RECHECK IT, IT WAS 87/65 IN THE BATHROOM BUT WHEN i GOT PATIENT BACK IN BED IT WAS 97/69. PER DOCTOR TO HOLD THE MEDICATION FOR TODAY.
[2021-11-23] MEDS ORDERED: MACROBID 1100 MG/CAP PO (09:45)
[2021-11-23] MEDS ORDERED: ELIQUIS 5MG PO (09:46)
[2021-11-23] MEDS ORDERED: METOPROLOL TART75 MG PO (09:47)
[2021-11-23] MEDS ORDERED: PLAVIX 75MG TAB75 MG PO (09:47)
[2021-11-23] MEDS ORDERED: MIRALAX PA17 GM/Dose PO (09:48)
[2021-11-23] MEDS ORDERED: PEPCID 20MG TAB20 MG PO (09:49)
[2021-11-23] MEDS ORDERED: FLOMAX 0.40.4 MG/CAP PO (09:49)
[2021-11-23 10:17] LABS: BASO # 0.1 K/mm3 (0.0-0.2); BASO % 0.9 % (0.0-2.0); EOS # 0.3 K/mm3 (0.0-0.7); EOS % 2.8 % (0.0-4.0); GRAN # 8.9 K/mm3 (1.4-6.5); GRAN % 76.7 % (42.2-75.2); HEMATOCRIT 43.6 % (42.0-52.0); HEMOGLOBIN 14.3 g/dl (13.5-18.0); LYMPH # 1.1 K/mm3 (1.2-3.4); LYMPH % 9.4 % (20.0-51.0); MEAN CELL VOLUME 93 fl (80.0-100.0); MEAN CORPUSCULAR HEMOGLOBIN 30 pg (27-31); MEAN CORPUSCULAR HGB CONC 33 g/dl (33.0-37.0); MEAN PLATELET VOLUME 10.4 fl (7.4-10.4); MONO # 1.1 K/mm3 (0.1-0.6); MONO % 9.6 % (1.7-9.3); PLATELET COUNT 479 K/mm3 (130-400); REDCELL DISTRIBUTION WIDTH-CV 13.9 % (11.5-14.5)
[2021-11-23 10:29] LABS: CALCIUM 10.4 mg/dL (8.4-10.2); CREATININE, serum 1.84 mg/dL (0.72-1.25); POTASSIUM 4.1 mmol/L (3.5-4.5)
--- NOTE | 2021-11-23 11:39 | NUR ---
The patient is to discharge today, 11/23, to [facility] for a skilled stay. Transportation was scheduled at 1330, via [facility]. SW informed the patient, his , and RN of the time. No additional needs at this time.
--- NOTE | 2021-11-23 13:42 | NUR ---
Discharge QIM scores were reviewed by the team. Code of 6 chosen for walk 50 feet w/ 2 turns was determined by team discussion to be the most usual performance for this patient during the discharge assessment period. Code of 6 chosen for walk 150 feet was determined by team discussion to be the most usual performance for this patient during the discharge assessment period.--America Faulkner, PD
--- NOTE | 2021-11-23 14:09 | NUR ---
DISCHARGE TODAY 11/23/2021 AT 1:59PM. INSTRUCTION WAS GIVEN ORDER. PATIENT AND HAD NO QUESTION OR CONCERN.
== END 2021-11-23 13:59 | DRG 57 ==
PROVIDERS: Student in an Organized Health Care Education/Training Program; ADMIT Physical Medicine & Rehabilitation Sports Medicine
DX: I69.351 Hemiplegia and hemiparesis following cerebral infarction affecting right dominant side (principal); N39.0 Urinary tract infection, site not specified; I69.320 Aphasia following cerebral infarction; I25.2 Old myocardial infarction; R26.89 Other abnormalities of gait and mobility; N18.30 Chronic kidney disease, stage 3 unspecified; I12.9 Hypertensive chronic kidney disease with stage 1 through stage 4 chronic kidney disease, or unspecified chronic kidney disease; E78.5 Hyperlipidemia, unspecified; E11.22 Type 2 diabetes mellitus with diabetic chronic kidney disease; I48.0 Paroxysmal atrial fibrillation; I65.29 Occlusion and stenosis of unspecified carotid artery; E03.9 Hypothyroidism, unspecified; F32.A Depression, unspecified; G47.33 Obstructive sleep apnea (adult) (pediatric); E11.51 Type 2 diabetes mellitus with diabetic peripheral angiopathy without gangrene; Z79.899 Other long term (current) drug therapy; Z73.6 Limitation of activities due to disability; Z79.01 Long term (current) use of anticoagulants; K59.00 Constipation, unspecified; Z79.82 Long term (current) use of aspirin; W19.XXXA Unspecified fall, initial encounter; Y92.230 Patient room in hospital as the place of occurrence of the external cause; R35.0 Frequency of micturition; R30.0 Dysuria
CPT/HCPCS: A9284; J1644

== ENCOUNTER → 2022-02-14 | Outpatient (RCR) | payer MEDICARE ==
[~2022-02-14] MED LIST changes: +ASPIRIN 32325 MG/TAB PO; +FLOMAX 0.40.4 MG/CAP PO; +MACROBID 1100 MG/CAP PO; +METOPROLOL TART75 MG PO; +MIRALAX PA17 GM/Dose PO; +PLAVIX 75MG TAB75 MG PO; +SYNTHROID0.1 MG/TAB PO; +WELLBUTRIN XL300 M1 PO; +ZOVIRAX5% TOP
== END | disposition home or self-care (01) ==
LOC: MKS.ESL.OT → MKS.ESL.PT 01-18 09:42 → MKS.ESL.OT 01-20 13:45 → WSST 01-25 09:45 → MKS.ESL.PT 01-27 13:45 → MKS.ESL.OT 15:00
DX: I69.351 Hemiplegia and hemiparesis following cerebral infarction affecting right dominant side (principal)

== ENCOUNTER 2022-05-16 13:45 | Outpatient (RCR) | payer MEDICARE, BC | END 2022-05-17 | disposition home or self-care (01) | LOC: WSST | DX: I69.320 Aphasia following cerebral infarction (principal); I69.390 Apraxia following cerebral infarction ==

== ENCOUNTER 2022-06-06 13:45 | Outpatient (RCR) | payer MEDICARE, BC | END 2022-06-14 | disposition home or self-care (01) | LOC: WSST | DX: I69.320 Aphasia following cerebral infarction (principal); I69.390 Apraxia following cerebral infarction; I69.351 Hemiplegia and hemiparesis following cerebral infarction affecting right dominant side ==